=== PATIENT | male | born 2000 ===

== ENCOUNTER 2023-01-14 15:53 | Emergency (ER) | payer BC ==
[2023-01-14] MEDS ORDERED: Acetaminophen 500 MG Tab PO ONE (16:22)
[2023-01-14] MEDS ORDERED: Ibuprofen 800 MG Tab PO ONE (16:23)
[2023-01-14 17:01] LABS: CORONAVIRUS COVID-19 NAA NEGATIVE (NEGATIVE); INFLUENZA A NAA NEGATIVE (NEGATIVE); INFLUENZA B NAA NEGATIVE (NEGATIVE); RESPIRATORY SYNCYTIAL VIR NAA NEGATIVE (NEGATIVE)
== END 2023-01-14 17:53 | disposition home or self-care (01) ==
LOC: MW.ED 15:53
DX: B34.9 Viral infection, unspecified (principal); Z20.822 Contact with and (suspected) exposure to COVID-19
CPT/HCPCS: 0241U; 87651; 99284; A9270; 99283